=== PATIENT | female | born 1965 | race Caucasian/White ===

== ENCOUNTER → 2018-05-17 | Outpatient (CLI) | payer OTHER ==
--- NOTE | 2018-05-17 14:49 | XR ---
EXAMINATION TYPE: XR wrist complete RT DATE OF EXAM: 05/17/2018 COMPARISON: NONE HISTORY: 52 year-old female right wrist strain from repeated forceful ulnar deviation TECHNIQUE: 4 views FINDINGS: The radiocarpal and distal radioulnar joints as well as the midcarpal compartment appear intact. Neutral ulnar variance. There is some soft tissue swelling along the ulnar aspect of the wrist. No ac tulalip fracture, subluxation, or dislocation seen. IMPRESSION: 1. No acute osseous abnormality seen. 2. Ulnar-sided soft tissue swelling. Findings could represent injury to the TFCC, ECU, or the ECU sub sheath
== END | disposition home or self-care (01) ==
LOC: RADXRMAIN 14:26
PROVIDERS: ATTEND Emergency Medicine
DX: M79.89 Other specified soft tissue disorders (principal)

== ENCOUNTER → 2018-06-28 | Outpatient (CLI) | payer OTHER ==
--- NOTE | 2018-06-28 18:20 | XR ---
PROCEDURE: XR wrist complete RT 4V DATE AND TIME: 06/28/2018 6:07 PM CLINICAL INDICATION: [id number] Sprain wrist. Injury 05/17/2018 right wrist pain down fifth metacarpal. TECHNIQUE: Department protocol. COMPARISON: None FINDINGS: There is no fracture or malalignment. Multifocal relatively mild osteoarthritis changes are appreciated. There is evidence suggesting medial soft tissue swelling in the area of clinical intere st. The soft tissues are otherwise unremarkable. IMPRESSION: Medial soft tissue swelling noted.
== END ==
LOC: RADXRMAIN 17:54
PROVIDERS: ATTEND Emergency Medicine
DX: M79.89 Other specified soft tissue disorders (principal)